=== PATIENT | female | born 1970 | race African-American/Black ===

== ENCOUNTER 2016-10-07 18:47 | Inpatient (IN) | payer OTHER ==
[2016-10-07 19:24] VITALS: BMI 26.3
--- NOTE | 2016-10-07 19:31 | HP ---
Admission ROS [facility] - [facility] Chief Complaint: I WANT TO GO TO REHAB COMPLETED ACI DETOX TODAY Allergies/Adverse Reactions: Allergies Allergy/AdvReac Type Severity Reaction Status Date / Time No Known Allergies Allergy Verified 10/07/16 19:17 History of Present Illness: 46 YEARS OLD FEMALE WITH LONG HISTORY OF HEROIN COCAINE NICOTINE DEPENDENCE HAS ASTHMA HYPERTENSION ECZEMA AND SCHIZOPHRENIA IS ADMITTED TO REHAB Exam Limitations: No Limitations - Ebola screening Have you traveled outside of the country in the last 21 days: No Have you had contact with anyone from an Ebola affected area: No Have you been sick,other than usual withdrawal symptoms: No Do you have a fever: No - Review of Systems Constitutional: Loss of Appetite, Unintentional Wgt. Loss EENT: reports: No Symptoms Reported Respiratory: reports: No Symptoms reported Cardiac: reports: No Symptoms Reported GI: reports: Poor Appetite : reports: No Symptoms Reported Musculoskeletal: reports: No Symptoms Reported Integumentary: reports: Lesions (INNER ELBOWS AND NECK) Neuro: reports: No Symptoms reported Endocrine: reports: No Symptoms Reported Hematology: reports: No Symptoms Reported Psychiatric: reports: Judgement Intact, Orientated x3 Other Systems: Reviewed and Negative Patient History - Patient Medical History Hx Anemia: No Hx Asthma: Yes Hx Chronic Obstructive Pulmonary Disease (COPD): No Hx Cancer: No Hx Cardiac Disorders: No Hx Congestive Heart Failure: No Hx Hypertension: Yes (currently on treatment) Hx Hypercholesterolemia: No Hx Pacemaker: No HX Cerebrovascular Accident: Yes (cerebral aneurysm in 01/01/2008) Hx Seizures: No Hx Dementia: No Hx Diabetes: No Hx Gastrointestinal Disorders: No Hx Liver Disease: No Hx Genitourinary Disorders: No Hx Sexually Transmitted Disorders: No Hx Renal Disease (ESRD): No Hx Thyroid Disease: No Hx Human Immunodeficiency Virus (HIV): No Hx Hepatitis C: Yes (since 2009) Hx Depression: No (currently on treatment) Hx Suicide Attempt: No Hx Bipolar Disorder: No Hx Schizophrenia: Yes - Patient Surgical History Past Surgical History: Yes Hx Neurologic Surgery: Yes (brain aneurysm in 01/01/2008) Hx Cataract Extraction: No Hx Cardiac Surgery: No Hx Lung Surgery: No Hx Breast Surgery: No Hx Breast Biopsy: No Hx Abdominal Surgery: No Hx Appendectomy: No Hx Cholecystectomy: No Hx Genitourinary Surgery: No Hx Section: Yes (x4) Hx Orthopedic Surgery: No Anesthesia Reaction: No - PPD History Previous Implant?: Yes Documented Results: Negative w/o proof Implanted On Prior [facility] Admission?: Yes Date: 10/17/12 PPD to be Administered?: Yes - Reproductive History Patient is a Female of Child Bearing Age (11 -55 yrs old): Yes Last Menstrual Period: 09/30/16 Patient : No - Smoking Cessation Smoking history: Current every day smoker Have you smoked in the past 12 months: Yes Aproximately how many cigarettes per day: 20 Cigars Per Day: 0 Hx Chewing Tobacco Use: No Initiated information on smoking cessation: Yes 'Breaking Loose' booklet given: 10/07/16 - Substance & Tx. History Hx Alcohol Use: No Hx Substance Use: Yes Substance Use Type: Alcohol Hx Substance Use Treatment: Yes - Substances Abused Alcohol Route: Oral Frequency: Daily Amount used: P[place] Age of first use: 23 Date of Last Use: 09/28/16 Heroin Route: Inhalation Frequency: Daily Amount used: 20 BAGS Age of first use: 24 Date of Last Use: 09/28/16 Family Disease History - Family Disease History Family Disease History: Other: Father ( CYST BURST), Mother ( HIV) Admission Physical Exam S - Vital Signs Vital Signs: Vital Signs - 24 hr 10/07/16 19:21 Temperature 97.6 F Pulse Rate 77 Respiratory 18 Rate Blood Pressure 128/73 - Physical General Appearance: Yes: No Apparent Distress, Appropriately Dressed, Thin HEENTM: Yes: Hearing grossly Normal, Normal ENT Inspection, Normocephalic, Normal Voice Respiratory: Yes: Chest Non-Tender, Lungs Clear, Normal Breath Sounds, No Respiratory Distress, No Accessory Muscle Use Neck: Yes: Supple, Trachea in good position Breast: Yes: Breasts Symetrical Cardiology: Yes: Regular Rhythm, Regular Rate, S1, S2 Abdominal: Yes: Non Tender, Soft Genitourinary: Yes: Within Normal Limits Back: Yes: Normal Inspection Musculoskeletal: Yes: full range of Motion, Gait Steady Extremities: Yes: Normal Inspection, Normal Range of Motion, Non-Tender Neurological: Yes: Fully Oriented, Alert, Motor Strength 5/5, Normal Response, Depressed Affect Integumentary: Yes: Normal Color, Warm Lymphatic: Yes: Within Normal Limits - Diagnostic (1) Asthma Current Visit: Yes Status: Acute (2) Essential hypertension Current Visit: Yes Status: Acute (3) Hepatitis C carrier Current Visit: Yes Status: Chronic (4) s/p clipping of cerebral aneurysm right Current Visit: Yes Status: Resolved Comment: CLIPPED 2007, FOLLOW UP ONCE A MONTH, LAST VISIT LAST MONTH (5) Alcohol dependence with uncomplicated withdrawal Current Visit: Yes Status: Acute (6) Schizophrenia, chronic condition Current Visit: Yes Status: Suspected Comment: ZOLOFT SEROQUEL (7) Nicotine dependence Current Visit: Yes Status: Acute Qualifiers: Nicotine product type: cigarettes Substance use status: uncomplicated Qualified Code(s): F17.210 - Nicotine dependence, cigarettes, uncomplicated (8) Eczema Current Visit: Yes Status: Acute Qualifiers: Eczema type: flexural Qualified Code(s): L20.82 - Flexural eczema Comment: HYDROCORTISON CREAM 1% (9) Neuropathy Current Visit: Yes Status: Acute Comment: NEURONTIN 400 MG TID Cleared for Admission [facility] - Detox or Rehab [facility] Level of Care: Observation Bed Claeared for Rehab Admission: Yes [facility] Breath Alcohol Content Breath Alcohol Content: 0 Vital Signs - Vital Signs Vital Signs Refused: No Temperature: 97.6 F Temperature Source: Oral Pulse Rate: 77 Respiratory Rate: 18 Blood Pressure: 128/73 BP Location: Left Arm Blood Pressure Position: Sitting - Height Height: 5 ft 7 in - Weight Weight: 168 lb Weight Measurement Method: Standing Scale Body Mass Index (BMI): 26.3 - Bowel Function Bowel Movement: Yes Urine Pregancy Test - Result Urine Test Results: Negative- NO Line Present Urine Drug Screen - Results Drug Screen Negative: No Urine Drug Screen Results: BZO-Benzodiazepines, MTD-Methadone
[2016-10-07] MEDS ORDERED: MAGNESIUM HYDROX 2400MG/30ML ORAL SUSPENSION 30 ML CUP PO PRN (19:41)
[2016-10-07] MEDS ORDERED: guaiFENesin/D-METHORPHAN HB 10 ML UNIT-DOSE CUPS PO PRN (19:41)
[2016-10-07] MEDS ORDERED: LOPERAMIDE HCL 2 MG CAPSULE PO PRN (19:41)
[2016-10-07] MEDS ORDERED: ACETAMINOPHEN 325 MG TABLET (FP) PO PRN (19:41)
[2016-10-07] MEDS ORDERED: NICOTINE POLACRILEX 2 MG GUM BC PRN (19:41)
[2016-10-07] MEDS ORDERED: IBUPROFEN 400 MG TABLET (FP) PO PRN (19:41)
[2016-10-07] MEDS ORDERED: MAG HYDROX/AL HYDROX/SIMETH 30 ML UNIT-DOSE CUP PO PRN (19:41)
[2016-10-07] MEDS ORDERED: diphenhydrAMINE HCL 50 MG CAPSULE PO PRN (19:41)
[2016-10-07] MEDS ORDERED: P-EPHED 60MG/TRIPROLIDI 2.5MG TABLET PO PRN (19:41)
[2016-10-07] MEDS ORDERED: MAGNESIUM CITRATE 300 ML BOTTLE PO PRN (19:41)
[2016-10-07] MEDS ORDERED: ALBUTEROL SO4 6.7 GM HFA INHALER IH PRN (19:43)
--- NOTE | 2016-10-07 23:10 | PN ---
[facility] Progress Note Note: Psychiatry Attending application packaging consultant: Called to enter orders for: seroquel 400 mg po hs zoloft 50 mg po daily Case: 46 y/o female with PTSD and Schizophrenia. Admitted to [facility] to address alcohol/heroin dependence. Not available for telephone interview.Asleep.Came from [facility]. [facility] report is read and appreciated. test:negative. Medications cannot be verified.Pharmacy claims:no database. As a caution,feature writer will not order 400 mg of seroquel at this time. Noted report of completion of detox at [facility] on this date.Normal vitals. Plan: Seroquel 200 mg po hs. Dose to be re-adjusted in the morning. zoloft 50 mg po daily. Coverage psychiatrist to follow in AM. Discussed with nurse on duty.
[2016-10-07 23:27] LABS: URINE APPEARANCE CLEAR; URINE BILIRUBIN NEGATIVE (NEGATIVE); URINE BLOOD NEGATIVE (NEGATIVE); URINE COLOR LTYELLOW; URINE GLUCOSE (UA) NEGATIVE (NEGATIVE); URINE KETONE NEGATIVE (NEGATIVE); URINE NITRITE NEGATIVE (NEGATIVE); URINE PROTEIN NEGATIVE (NEGATIVE); URINE UROBILINOGEN 2.0 E.U/dl E.U./dl (0.2-1.0)
[2016-10-07 23:28] LABS: URINE LEUK ESTERASE TRACE (NEGATIVE)
[2016-10-07 23:30] LABS: URINE RBC 1 /hpf (0-3); URINE WBC 3 /hpf (3-5)
[2016-10-07] MEDS: THIAMINE HCL 100 MG TABLET (FP) PO SCH (23:37)
[2016-10-07] MEDS: GABAPENTIN 400 MG CAPSULE (FP) PO SCH (23:37)
[2016-10-07] MEDS: HYDROCORTISONE 1% TOPICAL CREAM 30 GM TUBE TP SCH (23:38)
[2016-10-07] MEDS: hydrOXYzine PAMOATE 50 MG CAPSULE (FP) PO PRN (23:39)
[2016-10-08] MEDS: GABAPENTIN 400 MG CAPSULE (FP) PO SCH ×3 (07:06→21:43)
[2016-10-08] MEDS: hydrOXYzine PAMOATE 50 MG CAPSULE (FP) PO PRN ×2 (08:55→21:42)
[2016-10-08 09:57] LABS: MCH 26.7 pg (25.7-33.7); MCHC 32.7 g/dl (32.0-36.0); MEAN CELL VOLUME 81.6 fl (80-96); MEAN PLT VOLUME 10.7 fl (7.5-11.1); PLATELET COUNT 250 K/MM3 (134-434); RDW 15.6 % (11.6-15.6); WHITE BLOOD COUNT 14.8 K/mm3 (4.0-10.0)
[2016-10-08] MEDS: cloNIDine HCL 0.1 MG TABLET PO SCH (10:08)
[2016-10-08] MEDS: PRENATAL VITAMINS W/ FOLIC ACID TABLET (FP) PO SCH (10:09)
[2016-10-08] MEDS: HYDROCORTISONE 1% TOPICAL CREAM 30 GM TUBE TP SCH ×4 (10:09→21:43)
[2016-10-08] MEDS: NICOTINE 21 MG/24 HOURS TOPICAL PATCH TD SCH (10:09)
[2016-10-08] MEDS: SERTRALINE HCL 50 MG TABLET (FP) PO SCH (10:09)
[2016-10-08 10:25] LABS: INR 0.91 (0.82-1.09)
[2016-10-08 11:00] LABS: ALBUMIN 3.9 g/dl (3.4-5.0); ANION GAP 3 (8-16); CO2 24 mmol/L (21-32); GLUCOSE,RANDOM 72 mg/dL (74-106)
[2016-10-08 11:04] LABS: ALK PHOS 97 U/L (45-117); BILIRUBIN,TOTAL 0.5 mg/dL (0.2-1.0); CREATININE 0.9 mg/dL (0.55-1.02); SGOT/AST 15 U/L (15-37); SGPT/ALT 21 U/L (12-78); TOT PROT 8.4 g/dl (6.4-8.2)
[2016-10-08 13:25] LABS: HIV 1 & 2 AB NEGATIVE; HIV 1 AGp24 NEGATIVE
[2016-10-08] MEDS: THIAMINE HCL 100 MG TABLET (FP) PO SCH (21:42)
[2016-10-08] MEDS: QUEtiapine FUMARATE 200 MG TABLET PO SCH (21:44)
[2016-10-09] MEDS: GABAPENTIN 400 MG CAPSULE (FP) PO SCH ×3 (06:54→21:34)
--- NOTE | 2016-10-09 09:17 | HP ---
[id number] Identifying data: This is the second admission to [address] [place] [address] rehab for this 46 yo single mother of 3 kids grown,resides with boyfriend ,supported by SSD. Medical History: Significant for HTN,BA,Neuropathy,Hep C,Eczema. Psychiatric History: First contact with psychiatrist was 15 years ago after she lost her brother,who was killed.Patient was admitted to [facility].She was dx with Schizophrenia and placed on antipsychotics.Patient reports more then 6 psych admitions.F/U by private psychiatrist at [facility] in the [place].Meds:Seroquel 400 mg po hs,Neurontin 400 mg po tid, Trazodone 100 mg po hs and Zoloft 50 mg po daily. Physical/Sexual Abuse/Trauma History: Patient is not willing to discuss at this time. Vital Signs: Vital Signs - 24 hr 10/08/16 10/08/16 10/09/16 09:52 13:29 00:30 Temperature Pulse Rate 87 Respiratory 16 18 Rate Blood Pressure 121/77 10/09/16 10/09/16 03:30 07:10 Temperature 97.7 F Pulse Rate 66 Respiratory 18 18 Rate Blood Pressure 120/75 Allergies/Adverse Reactions: Allergies Allergy/AdvReac Type Severity Reaction Status Date / Time No Known Allergies Allergy Verified 10/07/16 19:17 Date of last physical exam: 10/07/16 Concur with the findings of this exam: Yes - Substance Abuse/Tx History Hx Alcohol Use: Yes (reports drinking since 23 yo,12 pint of vodka daily) Hx Substance Use: Yes (cocaine sine 22 yo,heroin since 24 yo,20 bags daily, benzo started 9 yo) Substance Use Type: Alcohol, Cocaine, Heroin Hx Substance Use Treatment: Yes (this is her second inpatient treatment) - Admission Criteria Previous failed treatment: Yes Poor recovery environment: Yes Comorbidities: Yes Lacks judgement: Yes Mental Status Exam - Mental Status Exam Alert and Oriented to: Time, Place, Person Cognitive Function: Grossly Intact Patient Appearance: Well Groomed Mood: Anxious Affect: Mood Congruent, Labile Patient Behavior: Cooperative Speech Pattern: Clear Thought Process: Goal Oriented Thought Disorder: Not Present, Paranoid Ideation Hallucinations: Denies Suicidal Ideation: Denies Homicidal Ideation: Denies Insight/Judgement: Fair Sleep: Difficulty falling asleep Appetite: Good Muscle strength/Tone: Normal Gait/Station: Normal Psychiatric Findings - Problem List ([place] 1, 2,3) (1) Alcohol dependence with uncomplicated withdrawal Current Visit: Yes Status: Chronic (2) Asthma Current Visit: Yes Status: Chronic (3) Eczema Current Visit: Yes Status: Chronic Qualifiers: Eczema type: flexural Qualified Code(s): L20.82 - Flexural eczema Comment: HYDROCORTISON CREAM 1% (4) Essential hypertension Current Visit: Yes Status: Chronic (5) Neuropathy Current Visit: Yes Status: Chronic Comment: NEURONTIN 400 MG TID (6) Nicotine dependence Current Visit: Yes Status: Chronic Qualifiers: Nicotine product type: cigarettes Substance use status: uncomplicated Qualified Code(s): F17.210 - Nicotine dependence, cigarettes, uncomplicated (7) Hepatitis C carrier Current Visit: Yes Status: Chronic (8) Schizophrenia, chronic condition Current Visit: Yes Status: Chronic (9) Opioid dependence Current Visit: Yes Status: Chronic (10) PTSD (post-traumatic stress disorder) Current Visit: Yes Status: Chronic - Initial Treatment Plan Initial Treatment Plan: Continue current medications as per plan.Will monitor progress.
[2016-10-09] MEDS: NICOTINE 21 MG/24 HOURS TOPICAL PATCH TD SCH (10:45)
[2016-10-09] MEDS: cloNIDine HCL 0.1 MG TABLET PO SCH (10:45)
[2016-10-09] MEDS: HYDROCORTISONE 1% TOPICAL CREAM 30 GM TUBE TP SCH ×4 (10:46→21:35)
[2016-10-09] MEDS: SERTRALINE HCL 50 MG TABLET (FP) PO SCH (10:46)
[2016-10-09] MEDS: PRENATAL VITAMINS W/ FOLIC ACID TABLET (FP) PO SCH (10:46)
[2016-10-09] MEDS: hydrOXYzine PAMOATE 50 MG CAPSULE (FP) PO PRN ×2 (11:14→19:05)
[2016-10-09] MEDS: QUEtiapine FUMARATE 200 MG TABLET PO SCH (21:34)
[2016-10-09] MEDS: THIAMINE HCL 100 MG TABLET (FP) PO SCH (21:34)
[2016-10-10] MEDS: GABAPENTIN 400 MG CAPSULE (FP) PO SCH ×3 (06:35→21:30)
[2016-10-10] MEDS: PRENATAL VITAMINS W/ FOLIC ACID TABLET (FP) PO SCH (10:22)
[2016-10-10] MEDS: cloNIDine HCL 0.1 MG TABLET PO SCH (10:22)
[2016-10-10] MEDS: SERTRALINE HCL 50 MG TABLET (FP) PO SCH (10:22)
[2016-10-10] MEDS: hydrOXYzine PAMOATE 50 MG CAPSULE (FP) PO PRN ×2 (10:23→21:31)
[2016-10-10] MEDS: NICOTINE 21 MG/24 HOURS TOPICAL PATCH TD SCH (10:25)
[2016-10-10] MEDS: HYDROCORTISONE 1% TOPICAL CREAM 30 GM TUBE TP SCH ×4 (10:25→21:32)
[2016-10-10] MEDS: QUEtiapine FUMARATE 200 MG TABLET PO SCH (21:30)
[2016-10-10] MEDS: THIAMINE HCL 100 MG TABLET (FP) PO SCH (21:30)
[2016-10-11] MEDS: GABAPENTIN 400 MG CAPSULE (FP) PO SCH ×3 (06:35→21:50)
[2016-10-11] MEDS: cloNIDine HCL 0.1 MG TABLET PO SCH (10:06)
[2016-10-11] MEDS: NICOTINE 21 MG/24 HOURS TOPICAL PATCH TD SCH (10:07)
[2016-10-11] MEDS: PRENATAL VITAMINS W/ FOLIC ACID TABLET (FP) PO SCH (10:07)
[2016-10-11] MEDS: HYDROCORTISONE 1% TOPICAL CREAM 30 GM TUBE TP SCH ×4 (10:07→22:00)
[2016-10-11] MEDS: SERTRALINE HCL 50 MG TABLET (FP) PO SCH (10:07)
[2016-10-11] MEDS: QUEtiapine FUMARATE 200 MG TABLET PO SCH (21:49)
[2016-10-11] MEDS: THIAMINE HCL 100 MG TABLET (FP) PO SCH (21:50)
[2016-10-12] MEDS: GABAPENTIN 400 MG CAPSULE (FP) PO SCH ×3 (07:00→21:27)
[2016-10-12] MEDS: cloNIDine HCL 0.1 MG TABLET PO SCH (09:55)
[2016-10-12] MEDS: SERTRALINE HCL 50 MG TABLET (FP) PO SCH (09:55)
[2016-10-12] MEDS: NICOTINE 21 MG/24 HOURS TOPICAL PATCH TD SCH (09:56)
[2016-10-12] MEDS: PRENATAL VITAMINS W/ FOLIC ACID TABLET (FP) PO SCH (09:56)
[2016-10-12] MEDS: HYDROCORTISONE 1% TOPICAL CREAM 30 GM TUBE TP SCH ×4 (09:57→21:27)
[2016-10-12] MEDS: THIAMINE HCL 100 MG TABLET (FP) PO SCH (21:26)
[2016-10-12] MEDS: QUEtiapine FUMARATE 200 MG TABLET PO SCH (21:27)
[2016-10-13] MEDS: GABAPENTIN 400 MG CAPSULE (FP) PO SCH ×3 (06:49→21:35)
[2016-10-13] MEDS: SERTRALINE HCL 50 MG TABLET (FP) PO SCH (10:18)
[2016-10-13] MEDS: PRENATAL VITAMINS W/ FOLIC ACID TABLET (FP) PO SCH (10:18)
[2016-10-13] MEDS: cloNIDine HCL 0.1 MG TABLET PO SCH (10:18)
[2016-10-13] MEDS: HYDROCORTISONE 1% TOPICAL CREAM 30 GM TUBE TP SCH ×4 (10:19→21:36)
[2016-10-13] MEDS: NICOTINE 21 MG/24 HOURS TOPICAL PATCH TD SCH (10:19)
[2016-10-13] MEDS: THIAMINE HCL 100 MG TABLET (FP) PO SCH (21:34)
[2016-10-13] MEDS: QUEtiapine FUMARATE 200 MG TABLET PO SCH (21:35)
[2016-10-13] MEDS: hydrOXYzine PAMOATE 50 MG CAPSULE (FP) PO PRN (21:35)
[2016-10-14] MEDS: GABAPENTIN 400 MG CAPSULE (FP) PO SCH ×3 (06:23→21:56)
[2016-10-14] MEDS: NICOTINE 21 MG/24 HOURS TOPICAL PATCH TD SCH (10:25)
[2016-10-14] MEDS: PRENATAL VITAMINS W/ FOLIC ACID TABLET (FP) PO SCH (10:26)
[2016-10-14] MEDS: SERTRALINE HCL 50 MG TABLET (FP) PO SCH (10:26)
[2016-10-14] MEDS: cloNIDine HCL 0.1 MG TABLET PO SCH (10:27)
[2016-10-14] MEDS: HYDROCORTISONE 1% TOPICAL CREAM 30 GM TUBE TP SCH ×4 (10:27→21:58)
[2016-10-14] MEDS: hydrOXYzine PAMOATE 50 MG CAPSULE (FP) PO PRN ×2 (10:28→21:57)
[2016-10-14] MEDS: THIAMINE HCL 100 MG TABLET (FP) PO SCH (21:56)
[2016-10-14] MEDS: QUEtiapine FUMARATE 200 MG TABLET PO SCH (21:56)
[2016-10-15] MEDS: GABAPENTIN 400 MG CAPSULE (FP) PO SCH ×3 (06:21→21:27)
[2016-10-15] MEDS: cloNIDine HCL 0.1 MG TABLET PO SCH (10:38)
[2016-10-15] MEDS: PRENATAL VITAMINS W/ FOLIC ACID TABLET (FP) PO SCH (10:38)
[2016-10-15] MEDS: HYDROCORTISONE 1% TOPICAL CREAM 30 GM TUBE TP SCH ×4 (10:38→21:29)
[2016-10-15] MEDS: NICOTINE 21 MG/24 HOURS TOPICAL PATCH TD SCH (10:38)
[2016-10-15] MEDS: SERTRALINE HCL 50 MG TABLET (FP) PO SCH (10:38)
--- NOTE | 2016-10-15 10:59 | PN ---
Psychiatric Progress Note Vital Signs: Vital Signs Period Temp Pulse Resp BP Sys/Fulton Pulse Ox Last 24 Hr 98.1 F 78 16-18 115/69 Date of Session: 10/15/16 Chief Complaint:: "insomnia" HPI: Patient addressing alcohol, opioid, nicotine dependence comorbid Schizophrenia, PTSD. ROS: HTN , CEREBRAL ANEURYSM ,ASTHMA AND HEP C Current Medications: Active Medications Generic Name Dose Route Start Last Admin Trade Name Freq PRN Reason Stop Dose Admin Acetaminophen 650 mg 10/07/16 19:41 Tylenol - PO Q4H PRN PAIN Al Hydroxide/Mg Hydroxide 30 ml 10/07/16 19:41 10/08/16 04:29 Mylanta Oral Suspension - PO 30 ml Q6H PRN Administration DYSPEPSIA Albuterol Sulfate 2 puff 10/07/16 19:43 10/08/16 13:30 Ventolin Hfa Inhaler - IH 2 inhaler Q4H PRN Administration SHORT OF BREATH/WHEEZING Clonidine 0.3 mg 10/08/16 10:00 10/15/16 10:38 Catapres - PO 0.3 mg DAILY LIZBETH Administration Diphenhydramine HCl 50 mg 10/07/16 19:41 Benadryl - PO HSMR1 PRN INSOMNIA Eucalyptus/Menthol/Phenol/Sorbitol 1 each 10/07/16 19:41 Cepastat Lozenge - MM Q4H PRN SORE THROAT Gabapentin 400 mg 10/07/16 22:00 10/15/16 06:21 Neurontin - PO 400 mg TID LIZBETH Administration Guaifenesin 10 ml 10/07/16 19:41 Robitussin Dm - PO Q6H PRN COUGH Hydrocortisone 1 applic 10/07/16 22:00 10/15/16 10:38 Hytone 1% Cream - TP Not Given QID LIZBETH Hydroxyzine Pamoate 50 mg 10/07/16 19:41 10/14/16 21:57 Vistaril - PO 50 mg Q4H PRN Administration AGITATION Ibuprofen 800 mg 10/09/16 14:25 Motrin - PO Q6H PRN SEVERE PAIN Loperamide HCl 4 mg 10/07/16 19:41 Imodium - PO Q6H PRN DIARRHEA Magnesium Citrate 300 ml 10/07/16 19:41 Citroma - PO Q48H PRN CONSTIPATION Magnesium Hydroxide 30 ml 10/07/16 19:41 Milk Of Magnesia - PO DAILY PRN CONSTIPATION Nicotine 21 mg 10/08/16 10:00 10/15/16 10:38 Nicoderm Patch - TD Not Given DAILY LIZBETH Nicotine Polacrilex 2 mg 10/07/16 19:41 Nicorette Gum - BC Q2H PRN NICOTINE REPLACEMENT RX Multivit/Folic Acid/Iron 1 tab 10/08/16 10:00 10/15/16 10:38 Vitamins (Sjr) - PO 1 tab DAILY LIZBETH Administration Pseudoephedrine/Triprolidine 1 combo 10/07/16 19:41 Actifed - PO TID PRN NASAL CONGESTION Quetiapine Fumarate 200 mg 10/08/16 22:00 10/14/16 21:56 Seroquel - PO 200 mg HS LIZBETH Administration Quetiapine Fumarate 25 mg 10/15/16 11:00 Seroquel - PO DAILY LIZBETH Sertraline HCl 50 mg 10/08/16 10:00 10/15/16 10:38 Zoloft - PO 50 mg DAILY LIZBETH Administration Thiamine HCl 100 mg 10/07/16 22:00 10/14/16 21:56 Vitamin B1 - PO 100 mg HS LIZBETH Administration Trazodone HCl 50 mg 10/15/16 22:00 Desyrel - PO HS LIZBETH Medication(s) Change(s): add Seroquel 25 mg po am and Seroquel 25 mg po hs. Current Side Effect: No Lab tests ordered: No Lab tests reviewed: Yes Provider note:: Patient reports has been feeling very anxious, irritable and unable to sleep, states she [place] nights, she admits having nightmares as well. Reviewed chart and medications, dicsussed indications and properies each of her current medications, recommendede to add Trazodone and Seroquel 25 mg po am, patient agreed with the plan, psychoeducations andemotional support provided, will continue to monitor progress. Total face to face time:: 30 Mental Status Exam - Mental Status Exam Alert and Oriented to: Time, Place, Person Cognitive Function: Grossly Intact Patient Appearance: Well Groomed Mood: Sad, Anxious Affect: Mood Congruent Patient Behavior: Appropriate, Cooperative (rocking back and forth) Speech Pattern: Clear Voice Loudness: Normal Thought Disorder: Not Present Hallucinations: Denies Suicidal Ideation: Denies Homicidal Ideation: Denies Insight/Judgement: Fair Sleep: Poorly, Difficulty falling asleep Appetite: Fair Muscle strength/Tone: Normal Gait/Station: Normal Psychiatric Treatment Plan - Problem List (1) Alcohol dependence with uncomplicated withdrawal Current Visit: Yes (2) Nicotine dependence Current Visit: Yes Qualifiers: Nicotine product type: cigarettes Substance use status: uncomplicated Qualified Code(s): F17.210 - Nicotine dependence, cigarettes, uncomplicated (3) Schizophrenia, chronic condition Current Visit: Yes (4) PTSD (post-traumatic stress disorder) Current Visit: Yes (5) Opioid dependence Current Visit: Yes
[2016-10-15] MEDS: QUEtiapine FUMARATE 25 MG TABLET (FP) PO SCH (12:14)
--- NOTE | 2016-10-15 14:31 | PN ---
[facility] Progress Note Note: pt. c/o feeling dizzy pt. is alert,coherent & oriented bp 103/68 p 79 r 18 t 97.4f p : increase po fluid change clonidine to .1mg bid
[2016-10-15] MEDS: traZODone HCL 50 MG TABLET (FP) PO SCH (21:27)
[2016-10-15] MEDS: QUEtiapine FUMARATE 200 MG TABLET PO SCH (21:27)
[2016-10-15] MEDS: THIAMINE HCL 100 MG TABLET (FP) PO SCH (21:28)
[2016-10-16] MEDS: GABAPENTIN 400 MG CAPSULE (FP) PO SCH ×3 (06:27→21:37)
[2016-10-16] MEDS: cloNIDine HCL 0.1 MG TABLET PO SCH ×2 (10:13→21:37)
[2016-10-16] MEDS: HYDROCORTISONE 1% TOPICAL CREAM 30 GM TUBE TP SCH ×4 (10:13→21:37)
[2016-10-16] MEDS: SERTRALINE HCL 50 MG TABLET (FP) PO SCH (10:14)
[2016-10-16] MEDS: QUEtiapine FUMARATE 25 MG TABLET (FP) PO SCH (10:14)
[2016-10-16] MEDS: PRENATAL VITAMINS W/ FOLIC ACID TABLET (FP) PO SCH (10:14)
[2016-10-16] MEDS: NICOTINE 21 MG/24 HOURS TOPICAL PATCH TD SCH (10:14)
[2016-10-16] MEDS: traZODone HCL 50 MG TABLET (FP) PO SCH (21:37)
[2016-10-16] MEDS: THIAMINE HCL 100 MG TABLET (FP) PO SCH (21:37)
[2016-10-16] MEDS: QUEtiapine FUMARATE 200 MG TABLET PO SCH (21:37)
[2016-10-17] MEDS: GABAPENTIN 400 MG CAPSULE (FP) PO SCH ×3 (06:32→21:42)
[2016-10-17] MEDS: cloNIDine HCL 0.1 MG TABLET PO SCH ×2 (09:58→21:42)
[2016-10-17] MEDS: NICOTINE 21 MG/24 HOURS TOPICAL PATCH TD SCH (09:59)
[2016-10-17] MEDS: PRENATAL VITAMINS W/ FOLIC ACID TABLET (FP) PO SCH (09:59)
[2016-10-17] MEDS: SERTRALINE HCL 50 MG TABLET (FP) PO SCH (09:59)
[2016-10-17] MEDS: HYDROCORTISONE 1% TOPICAL CREAM 30 GM TUBE TP SCH ×4 (09:59→21:42)
[2016-10-17] MEDS: QUEtiapine FUMARATE 25 MG TABLET (FP) PO SCH (09:59)
[2016-10-17] MEDS: THIAMINE HCL 100 MG TABLET (FP) PO SCH (21:42)
[2016-10-17] MEDS: traZODone HCL 50 MG TABLET (FP) PO SCH (21:42)
[2016-10-17] MEDS: QUEtiapine FUMARATE 200 MG TABLET PO SCH (21:42)
[2016-10-18] MEDS: GABAPENTIN 400 MG CAPSULE (FP) PO SCH ×3 (06:49→21:34)
[2016-10-18] MEDS: SERTRALINE HCL 50 MG TABLET (FP) PO SCH (10:43)
[2016-10-18] MEDS: QUEtiapine FUMARATE 25 MG TABLET (FP) PO SCH (10:43)
[2016-10-18] MEDS: cloNIDine HCL 0.1 MG TABLET PO SCH ×2 (10:43→21:34)
[2016-10-18] MEDS: PRENATAL VITAMINS W/ FOLIC ACID TABLET (FP) PO SCH (10:43)
[2016-10-18] MEDS: HYDROCORTISONE 1% TOPICAL CREAM 30 GM TUBE TP SCH ×4 (10:44→21:36)
[2016-10-18] MEDS: NICOTINE 21 MG/24 HOURS TOPICAL PATCH TD SCH (10:44)
[2016-10-18] MEDS: IBUPROFEN 400 MG TABLET (FP) PO PRN ×2 (13:40→21:34)
[2016-10-18] MEDS: THIAMINE HCL 100 MG TABLET (FP) PO SCH (21:33)
[2016-10-18] MEDS: QUEtiapine FUMARATE 200 MG TABLET PO SCH (21:34)
[2016-10-18] MEDS: traZODone HCL 50 MG TABLET (FP) PO SCH (21:34)
[2016-10-19] MEDS: GABAPENTIN 400 MG CAPSULE (FP) PO SCH ×3 (06:24→21:23)
[2016-10-19] MEDS: IBUPROFEN 400 MG TABLET (FP) PO PRN ×3 (06:25→21:28)
[2016-10-19] MEDS: PRENATAL VITAMINS W/ FOLIC ACID TABLET (FP) PO SCH (09:57)
[2016-10-19] MEDS: cloNIDine HCL 0.1 MG TABLET PO SCH ×2 (09:57→21:23)
[2016-10-19] MEDS: QUEtiapine FUMARATE 25 MG TABLET (FP) PO SCH (09:57)
[2016-10-19] MEDS: HYDROCORTISONE 1% TOPICAL CREAM 30 GM TUBE TP SCH ×4 (09:57→21:25)
[2016-10-19] MEDS: SERTRALINE HCL 50 MG TABLET (FP) PO SCH (09:57)
[2016-10-19] MEDS: NICOTINE 21 MG/24 HOURS TOPICAL PATCH TD SCH (09:57)
[2016-10-19] MEDS ORDERED: LIDOCAINE VISCOUS 2% ORAL/TOP 20 ML UNIT-DOSE CUP MM PRN (19:14)
[2016-10-19] MEDS: LIDOCAINE VISCOUS 2% ORAL/TOP 20 ML UNIT-DOSE CUP MM PRN (20:50)
[2016-10-19] MEDS: QUEtiapine FUMARATE 200 MG TABLET PO SCH (21:24)
[2016-10-19] MEDS: THIAMINE HCL 100 MG TABLET (FP) PO SCH (21:24)
[2016-10-19] MEDS: traZODone HCL 50 MG TABLET (FP) PO SCH (21:24)
[2016-10-20] MEDS: IBUPROFEN 400 MG TABLET (FP) PO PRN ×4 (03:36→22:35)
[2016-10-20] MEDS: LIDOCAINE VISCOUS 2% ORAL/TOP 20 ML UNIT-DOSE CUP MM PRN (04:00)
[2016-10-20] MEDS: GABAPENTIN 400 MG CAPSULE (FP) PO SCH ×3 (06:51→21:28)
[2016-10-20] MEDS: QUEtiapine FUMARATE 25 MG TABLET (FP) PO SCH (10:14)
[2016-10-20] MEDS: PRENATAL VITAMINS W/ FOLIC ACID TABLET (FP) PO SCH (10:14)
[2016-10-20] MEDS: SERTRALINE HCL 50 MG TABLET (FP) PO SCH (10:14)
[2016-10-20] MEDS: cloNIDine HCL 0.1 MG TABLET PO SCH ×2 (10:14→21:27)
[2016-10-20] MEDS: NICOTINE 21 MG/24 HOURS TOPICAL PATCH TD SCH (10:14)
[2016-10-20] MEDS: HYDROCORTISONE 1% TOPICAL CREAM 30 GM TUBE TP SCH ×4 (10:15→21:27)
[2016-10-20] MEDS: THIAMINE HCL 100 MG TABLET (FP) PO SCH (21:28)
[2016-10-20] MEDS: traZODone HCL 50 MG TABLET (FP) PO SCH (21:28)
[2016-10-20] MEDS: QUEtiapine FUMARATE 200 MG TABLET PO SCH (21:28)
[2016-10-21] MEDS: IBUPROFEN 400 MG TABLET (FP) PO PRN ×2 (06:32→17:09)
[2016-10-21] MEDS: GABAPENTIN 400 MG CAPSULE (FP) PO SCH ×3 (06:32→21:31)
[2016-10-21] MEDS: SERTRALINE HCL 50 MG TABLET (FP) PO SCH (10:22)
[2016-10-21] MEDS: QUEtiapine FUMARATE 25 MG TABLET (FP) PO SCH (10:22)
[2016-10-21] MEDS: PRENATAL VITAMINS W/ FOLIC ACID TABLET (FP) PO SCH (10:22)
[2016-10-21] MEDS: cloNIDine HCL 0.1 MG TABLET PO SCH ×2 (10:22→21:31)
[2016-10-21] MEDS: NICOTINE 21 MG/24 HOURS TOPICAL PATCH TD SCH (10:23)
[2016-10-21] MEDS: HYDROCORTISONE 1% TOPICAL CREAM 30 GM TUBE TP SCH ×4 (10:23→21:32)
[2016-10-21] MEDS: THIAMINE HCL 100 MG TABLET (FP) PO SCH (21:31)
[2016-10-21] MEDS: QUEtiapine FUMARATE 200 MG TABLET PO SCH (21:31)
[2016-10-21] MEDS: traZODone HCL 50 MG TABLET (FP) PO SCH (21:31)
[2016-10-22] MEDS: GABAPENTIN 400 MG CAPSULE (FP) PO SCH ×3 (06:49→21:34)
[2016-10-22] MEDS: MENTHOL/PHENOL 1 EACH UD MM PRN ×2 (06:49→10:53)
[2016-10-22] MEDS: PRENATAL VITAMINS W/ FOLIC ACID TABLET (FP) PO SCH (10:51)
[2016-10-22] MEDS: SERTRALINE HCL 50 MG TABLET (FP) PO SCH (10:51)
[2016-10-22] MEDS: QUEtiapine FUMARATE 25 MG TABLET (FP) PO SCH (10:51)
[2016-10-22] MEDS: HYDROCORTISONE 1% TOPICAL CREAM 30 GM TUBE TP SCH ×4 (10:52→21:34)
[2016-10-22] MEDS: cloNIDine HCL 0.1 MG TABLET PO SCH ×2 (10:52→21:35)
[2016-10-22] MEDS: NICOTINE 21 MG/24 HOURS TOPICAL PATCH TD SCH (10:52)
--- NOTE | 2016-10-22 15:12 | PN ---
[facility] Progress Note Note: C/O TOOTHACHE,HAS SWOLLEN GUM AROUND INVOLVED TOOTH. Vital Signs - 8 hr 10/22/16 10/22/16 07:14 09:26 Temperature 98.0 F 97.2 F L Pulse Rate 76 85 Respiratory 18 18 Rate Blood Pressure 115/73 132/80 Laboratory Last Values WBC 14.8 K/mm3 (4.0-10.0) H D 10/08/16 07:00 RBC 4.49 M/mm3 (3.60-5.2) 10/08/16 07:00 Hgb 12.0 GM/dL (10.7-15.3) 10/08/16 07:00 Hct 36.6 % (32.4-45.2) 10/08/16 07:00 MCV 81.6 fl (80-96) 10/08/16 07:00 MCHC 32.7 g/dl (32.0-36.0) 10/08/16 07:00 RDW 15.6 % (11.6-15.6) 10/08/16 07:00 Plt Count 250 K/MM3 (134-434) D 10/08/16 07:00 MPV 10.7 fl (7.5-11.1) 10/08/16 07:00 INR 0.91 (0.82-1.09) 10/08/16 07:00 Sodium 134 mmol/L (136-145) L 10/08/16 07:00 Potassium 4.2 mmol/L (3.5-5.1) 10/08/16 07:00 Chloride 107 mmol/L (98-107) 10/08/16 07:00 Carbon Dioxide 24 mmol/L (21-32) 10/08/16 07:00 Anion Gap 3 (8-16) L 10/08/16 07:00 BUN 19 mg/dL (7-18) H D 10/08/16 07:00 Creatinine 0.9 mg/dL (0.55-1.02) D 10/08/16 07:00 Creat Clearance w eGFR > 60 (>60) 10/08/16 07:00 Random Glucose 72 mg/dL (74-106) L 10/08/16 07:00 Calcium 9.0 mg/dL (8.5-10.1) 10/08/16 07:00 Total Bilirubin 0.5 mg/dL (0.2-1.0) 10/08/16 07:00 AST 15 U/L (15-37) D 10/08/16 07:00 ALT 21 U/L (12-78) 10/08/16 07:00 Alkaline Phosphatase 97 U/L (45-117) D 10/08/16 07:00 Total Protein 8.4 g/dl (6.4-8.2) H 10/08/16 07:00 Albumin 3.9 g/dl (3.4-5.0) 10/08/16 07:00 Urine Color Ltyellow 10/07/16 23:15 Urine Appearance Clear 10/07/16 23:15 Urine pH 6.0 (5.0-8.0) 10/07/16 23:15 Ur Specific [place] 1.020 (1.001-1.035) 10/07/16 23:15 Urine Protein Negative (NEGATIVE) 10/07/16 23:15 Urine Glucose (UA) Negative (NEGATIVE) 10/07/16 23:15 Urine Ketones Negative (NEGATIVE) 10/07/16 23:15 Urine Blood Negative (NEGATIVE) 10/07/16 23:15 Urine Nitrite Negative (NEGATIVE) 10/07/16 23:15 Urine Bilirubin Negative (NEGATIVE) 10/07/16 23:15 Urine Urobilinogen 2.0 e.u/dl E.U./dl (0.2-1.0) H 10/07/16 23:15 Ur Leukocyte Esterase Trace (NEGATIVE) H D 10/07/16 23:15 Urine RBC 1 /hpf (0-3) 10/07/16 23:15 Urine WBC 3 /hpf (3-5) 10/07/16 23:15 Ur Epithelial Cells Rare /hpf (FEW) 10/07/16 23:15 RPR Titer Nonreactive (NONREACTIVE) 10/08/16 07:00 HIV 1&2 Antibody Screen Negative 10/08/16 11:10 HIV P24 Antigen Negative 10/08/16 11:10 DX. : DENTAL ABSCESS P : AMOXICILLIN 750 BID
[2016-10-22] MEDS: THIAMINE HCL 100 MG TABLET (FP) PO SCH (21:33)
[2016-10-22] MEDS: traZODone HCL 50 MG TABLET (FP) PO SCH (21:34)
[2016-10-22] MEDS: QUEtiapine FUMARATE 200 MG TABLET PO SCH (21:34)
[2016-10-22] MEDS: AMOXICILLIN 250 MG CAPSULE PO SCH (21:35)
[2016-10-23] MEDS: GABAPENTIN 400 MG CAPSULE (FP) PO SCH ×3 (06:53→21:21)
[2016-10-23] MEDS: MENTHOL/PHENOL 1 EACH UD MM PRN ×2 (06:54→13:39)
[2016-10-23] MEDS: cloNIDine HCL 0.1 MG TABLET PO SCH ×2 (10:26→21:20)
[2016-10-23] MEDS: PRENATAL VITAMINS W/ FOLIC ACID TABLET (FP) PO SCH (10:26)
[2016-10-23] MEDS: AMOXICILLIN 250 MG CAPSULE PO SCH ×2 (10:26→21:20)
[2016-10-23] MEDS: QUEtiapine FUMARATE 25 MG TABLET (FP) PO SCH (10:27)
[2016-10-23] MEDS: SERTRALINE HCL 50 MG TABLET (FP) PO SCH (10:27)
[2016-10-23] MEDS: NICOTINE 21 MG/24 HOURS TOPICAL PATCH TD SCH (10:28)
[2016-10-23] MEDS: HYDROCORTISONE 1% TOPICAL CREAM 30 GM TUBE TP SCH ×4 (10:28→21:21)
--- NOTE | 2016-10-23 13:38 | PN ---
Psychiatric Progress Note Vital Signs: Vital Signs Period Temp Pulse Resp BP Sys/Fulton Pulse Ox Last 24 Hr 97.6 F 67-81 18-18 112-125/71-80 Date of Session: 10/23/16 Chief Complaint:: Progress update. HPI: Patient addressed Opioid dependnece comorbid with Schizophrenia.,PTSD ROS: Significant for HTN,Eczema,Hep C. Current Medications: Active Medications Generic Name Dose Route Start Last Admin Trade Name Freq PRN Reason Stop Dose Admin Acetaminophen 650 mg 10/07/16 19:41 10/20/16 08:48 Tylenol - PO 650 mg Q4H PRN Administration PAIN Al Hydroxide/Mg Hydroxide 30 ml 10/07/16 19:41 10/08/16 04:29 Mylanta Oral Suspension - PO 30 ml Q6H PRN Administration DYSPEPSIA Albuterol Sulfate 2 puff 10/07/16 19:43 10/08/16 13:30 Ventolin Hfa Inhaler - IH 2 inhaler Q4H PRN Administration SHORT OF BREATH/WHEEZING Amoxicillin 750 mg 10/22/16 22:00 10/23/16 10:26 Amoxicillin - PO 10/29/16 21:59 750 mg BID LIZBETH Administration Clonidine 0.1 mg 10/16/16 10:00 10/23/16 10:26 Catapres - PO 0.1 mg BID LIZBETH Administration Diphenhydramine HCl 50 mg 10/07/16 19:41 Benadryl - PO HSMR1 PRN INSOMNIA Eucalyptus/Menthol/Phenol/Sorbitol 1 each 10/07/16 19:41 10/23/16 06:54 Cepastat Lozenge - MM 1 each Q4H PRN Administration SORE THROAT Gabapentin 400 mg 10/07/16 22:00 10/23/16 06:53 Neurontin - PO 400 mg TID LIZBETH Administration Guaifenesin 10 ml 10/07/16 19:41 Robitussin Dm - PO Q6H PRN COUGH Hydrocortisone 1 applic 10/07/16 22:00 10/23/16 10:28 Hytone 1% Cream - TP Not Given QID LIZBETH Hydroxyzine Pamoate 50 mg 10/07/16 19:41 10/14/16 21:57 Vistaril - PO 50 mg Q4H PRN Administration AGITATION Ibuprofen 800 mg 10/09/16 14:25 10/21/16 17:09 Motrin - PO 800 mg Q6H PRN Administration SEVERE PAIN Lidocaine HCl 20 ml 10/19/16 19:17 10/20/16 04:00 Xylocaine 2% Viscous Oral - MM 20 ml Q4HPO PRN Administration ORAL PAIN/MOUTH SORES Loperamide HCl 4 mg 10/07/16 19:41 Imodium - PO Q6H PRN DIARRHEA Magnesium Citrate 300 ml 10/07/16 19:41 Citroma - PO Q48H PRN CONSTIPATION Magnesium Hydroxide 30 ml 10/07/16 19:41 Milk Of Magnesia - PO DAILY PRN CONSTIPATION Naltrexone HCl 50 mg 10/23/16 13:45 Revia - PO DAILY LIZBETH Nicotine 21 mg 10/08/16 10:00 10/23/16 10:28 Nicoderm Patch - TD Not Given DAILY LIZBETH Nicotine Polacrilex 2 mg 10/07/16 19:41 Nicorette Gum - BC Q2H PRN NICOTINE REPLACEMENT RX Multivit/Folic Acid/Iron 1 tab 10/08/16 10:00 10/23/16 10:26 Vitamins (Sjr) - PO 1 tab DAILY LIZBETH Administration Pseudoephedrine/Triprolidine 1 combo 10/07/16 19:41 Actifed - PO TID PRN NASAL CONGESTION Quetiapine Fumarate 200 mg 10/08/16 22:00 10/22/16 21:34 Seroquel - PO 200 mg HS LIZBETH Administration Quetiapine Fumarate 25 mg 10/15/16 11:00 10/23/16 10:27 Seroquel - PO 25 mg DAILY LIZBETH Administration Sertraline HCl 50 mg 10/08/16 10:00 10/23/16 10:27 Zoloft - PO 50 mg DAILY LIZBETH Administration Thiamine HCl 100 mg 10/07/16 22:00 10/22/16 21:33 Vitamin B1 - PO 100 mg HS LIZBETH Administration Trazodone HCl 50 mg 10/15/16 22:00 10/22/16 21:34 Desyrel - PO 50 mg HS LIZBETH Administration Current Side Effect: No Lab tests ordered: No Lab tests reviewed: Yes Provider note:: Patient was evaluated in my office today .She reports still having craving for alcohol,heroin.Properties of Naltrexone has been discussed with the patient including side effects,benfits and dose adjustment.Patient is willing to start Naltrexone 50 mg po daily. Psychotherapy provided (supportive, psychoeducation). Total face to face time:: 35 Mental Status Exam - Mental Status Exam Alert and Oriented to: Time, Place, Person Cognitive Function: Grossly Intact Patient Appearance: Well Groomed Affect: Labile Patient Behavior: Cooperative Speech Pattern: Clear Voice Loudness: Normal Thought Process: Goal Oriented Thought Disorder: Not Present Hallucinations: Denies Suicidal Ideation: Denies Homicidal Ideation: Denies Insight/Judgement: Fair Sleep: Difficulty falling asleep Appetite: Good Muscle strength/Tone: Normal Gait/Station: Normal Psychiatric Treatment Plan - Problem List (1) Alcohol dependence with uncomplicated withdrawal Current Visit: Yes (2) Asthma Current Visit: Yes (3) Eczema Current Visit: Yes Qualifiers: Eczema type: flexural Qualified Code(s): L20.82 - Flexural eczema Comment: HYDROCORTISON CREAM 1% (4) Essential hypertension Current Visit: Yes (5) Neuropathy Current Visit: Yes Comment: NEURONTIN 400 MG TID (6) Nicotine dependence Current Visit: Yes Qualifiers: Nicotine product type: cigarettes Substance use status: uncomplicated Qualified Code(s): F17.210 - Nicotine dependence, cigarettes, uncomplicated (7) Hepatitis C carrier Current Visit: Yes (8) Schizophrenia, chronic condition Current Visit: Yes (9) Opioid dependence Current Visit: Yes (10) PTSD (post-traumatic stress disorder) Current Visit: Yes
[2016-10-23] MEDS: NALTREXONE HCL 50 MG TABLET PO SCH (15:09)
[2016-10-23] MEDS: QUEtiapine FUMARATE 200 MG TABLET PO SCH (21:20)
[2016-10-23] MEDS: THIAMINE HCL 100 MG TABLET (FP) PO SCH (21:21)
[2016-10-23] MEDS: traZODone HCL 50 MG TABLET (FP) PO SCH (21:21)
[2016-10-24] MEDS: GABAPENTIN 400 MG CAPSULE (FP) PO SCH ×3 (06:35→22:40)
[2016-10-24] MEDS: AMOXICILLIN 250 MG CAPSULE PO SCH ×2 (10:50→23:50)
[2016-10-24] MEDS: HYDROCORTISONE 1% TOPICAL CREAM 30 GM TUBE TP SCH ×4 (10:50→22:40)
[2016-10-24] MEDS: cloNIDine HCL 0.1 MG TABLET PO SCH ×2 (10:50→22:41)
[2016-10-24] MEDS: NICOTINE 21 MG/24 HOURS TOPICAL PATCH TD SCH (10:51)
[2016-10-24] MEDS: NALTREXONE HCL 50 MG TABLET PO SCH (10:51)
[2016-10-24] MEDS: PRENATAL VITAMINS W/ FOLIC ACID TABLET (FP) PO SCH (10:51)
[2016-10-24] MEDS: QUEtiapine FUMARATE 25 MG TABLET (FP) PO SCH (10:51)
[2016-10-24] MEDS: SERTRALINE HCL 50 MG TABLET (FP) PO SCH (10:52)
[2016-10-24] MEDS: MENTHOL/PHENOL 1 EACH UD MM PRN (10:53)
[2016-10-24] MEDS: traZODone HCL 50 MG TABLET (FP) PO SCH (22:40)
[2016-10-24] MEDS: QUEtiapine FUMARATE 200 MG TABLET PO SCH (22:40)
[2016-10-24] MEDS: THIAMINE HCL 100 MG TABLET (FP) PO SCH (22:40)
[2016-10-25] MEDS: GABAPENTIN 400 MG CAPSULE (FP) PO SCH ×3 (06:19→21:43)
[2016-10-25] MEDS: cloNIDine HCL 0.1 MG TABLET PO SCH ×2 (10:35→21:44)
[2016-10-25] MEDS: NALTREXONE HCL 50 MG TABLET PO SCH (10:35)
[2016-10-25] MEDS: AMOXICILLIN 250 MG CAPSULE PO SCH ×2 (10:35→21:43)
[2016-10-25] MEDS: HYDROCORTISONE 1% TOPICAL CREAM 30 GM TUBE TP SCH ×3 (10:36→21:44)
[2016-10-25] MEDS: QUEtiapine FUMARATE 25 MG TABLET (FP) PO SCH (10:36)
[2016-10-25] MEDS: SERTRALINE HCL 50 MG TABLET (FP) PO SCH (10:36)
[2016-10-25] MEDS: PRENATAL VITAMINS W/ FOLIC ACID TABLET (FP) PO SCH (10:36)
[2016-10-25] MEDS: NICOTINE 21 MG/24 HOURS TOPICAL PATCH TD SCH (10:37)
[2016-10-25] MEDS: QUEtiapine FUMARATE 200 MG TABLET PO SCH (21:43)
[2016-10-25] MEDS: THIAMINE HCL 100 MG TABLET (FP) PO SCH (21:43)
[2016-10-25] MEDS: traZODone HCL 50 MG TABLET (FP) PO SCH (21:43)
[2016-10-26] MEDS: GABAPENTIN 400 MG CAPSULE (FP) PO SCH ×3 (06:59→21:47)
[2016-10-26] MEDS: NALTREXONE HCL 50 MG TABLET PO SCH (10:30)
[2016-10-26] MEDS: cloNIDine HCL 0.1 MG TABLET PO SCH ×2 (10:30→21:47)
[2016-10-26] MEDS: SERTRALINE HCL 50 MG TABLET (FP) PO SCH (10:30)
[2016-10-26] MEDS: QUEtiapine FUMARATE 25 MG TABLET (FP) PO SCH (10:30)
[2016-10-26] MEDS: PRENATAL VITAMINS W/ FOLIC ACID TABLET (FP) PO SCH (10:30)
[2016-10-26] MEDS: AMOXICILLIN 250 MG CAPSULE PO SCH ×2 (10:32→21:48)
[2016-10-26] MEDS: NICOTINE 21 MG/24 HOURS TOPICAL PATCH TD SCH (10:32)
[2016-10-26] MEDS: HYDROCORTISONE 1% TOPICAL CREAM 30 GM TUBE TP SCH ×4 (10:34→21:48)
[2016-10-26] MEDS: QUEtiapine FUMARATE 200 MG TABLET PO SCH (21:47)
[2016-10-26] MEDS: traZODone HCL 50 MG TABLET (FP) PO SCH (21:47)
[2016-10-26] MEDS: THIAMINE HCL 100 MG TABLET (FP) PO SCH (21:47)
[2016-10-27] MEDS: GABAPENTIN 400 MG CAPSULE (FP) PO SCH ×3 (06:23→21:36)
[2016-10-27] MEDS: QUEtiapine FUMARATE 25 MG TABLET (FP) PO SCH (10:27)
[2016-10-27] MEDS: AMOXICILLIN 250 MG CAPSULE PO SCH ×2 (10:27→21:39)
[2016-10-27] MEDS: SERTRALINE HCL 50 MG TABLET (FP) PO SCH (10:27)
[2016-10-27] MEDS: cloNIDine HCL 0.1 MG TABLET PO SCH ×2 (10:27→21:37)
[2016-10-27] MEDS: NALTREXONE HCL 50 MG TABLET PO SCH (10:28)
[2016-10-27] MEDS: HYDROCORTISONE 1% TOPICAL CREAM 30 GM TUBE TP SCH ×4 (10:28→21:38)
[2016-10-27] MEDS: PRENATAL VITAMINS W/ FOLIC ACID TABLET (FP) PO SCH (10:28)
[2016-10-27] MEDS: NICOTINE 21 MG/24 HOURS TOPICAL PATCH TD SCH (10:29)
[2016-10-27] MEDS: QUEtiapine FUMARATE 200 MG TABLET PO SCH (21:37)
[2016-10-27] MEDS: THIAMINE HCL 100 MG TABLET (FP) PO SCH (21:37)
[2016-10-27] MEDS: traZODone HCL 50 MG TABLET (FP) PO SCH (21:37)
[2016-10-28] MEDS: GABAPENTIN 400 MG CAPSULE (FP) PO SCH (06:24)
[2016-10-28 06:50] VITALS: BP 112/71; PULSE 73; TEMP 97.8
--- NOTE | 2016-10-28 09:03 | PN ---
[id number] 18-18 [id number] Date of Session: 10/28/16 Chief Complaint:: discharge visit HPI: Patient addressed Alcohol and opioid depenedencer comorbid with Schizophrenia,PTSD. ROS: Significant for HTN,Eczema,Neuropathy,BA,Hep C. Current Medications: Active Medications Generic Name Dose Route Start Last Admin Trade Name Freq PRN Reason Stop Dose Admin Acetaminophen 650 mg 10/07/16 19:41 10/20/16 08:48 Tylenol - PO 650 mg Q4H PRN Administration PAIN Al Hydroxide/Mg Hydroxide 30 ml 10/07/16 19:41 10/08/16 04:29 Mylanta Oral Suspension - PO 30 ml Q6H PRN Administration DYSPEPSIA Albuterol Sulfate 2 puff 10/07/16 19:43 10/08/16 13:30 Ventolin Hfa Inhaler - IH 2 inhaler Q4H PRN Administration SHORT OF BREATH/WHEEZING Amoxicillin 750 mg 10/22/16 22:00 10/27/16 21:39 Amoxicillin - PO 10/29/16 21:59 750 mg BID LIZBETH Administration Clonidine 0.1 mg 10/16/16 10:00 10/27/16 21:37 Catapres - PO 0.1 mg BID LIZBETH Administration Diphenhydramine HCl 50 mg 10/07/16 19:41 Benadryl - PO HSMR1 PRN INSOMNIA Eucalyptus/Menthol/Phenol/Sorbitol 1 each 10/07/16 19:41 10/24/16 10:53 Cepastat Lozenge - MM 1 each Q4H PRN Administration SORE THROAT Gabapentin 400 mg 10/07/16 22:00 10/28/16 06:24 Neurontin - PO 400 mg TID LIZBETH Administration Guaifenesin 10 ml 10/07/16 19:41 Robitussin Dm - PO Q6H PRN COUGH Hydrocortisone 1 applic 10/07/16 22:00 10/27/16 21:38 Hytone 1% Cream - TP Not Given QID LIZBETH Hydroxyzine Pamoate 50 mg 10/07/16 19:41 10/14/16 21:57 Vistaril - PO 50 mg Q4H PRN Administration AGITATION Ibuprofen 800 mg 10/09/16 14:25 10/21/16 17:09 Motrin - PO 800 mg Q6H PRN Administration SEVERE PAIN Lidocaine HCl 20 ml 10/19/16 19:17 10/20/16 04:00 Xylocaine 2% Viscous Oral - MM 20 ml Q4HPO PRN Administration ORAL PAIN/MOUTH SORES Loperamide HCl 4 mg 10/07/16 19:41 Imodium - PO Q6H PRN DIARRHEA Magnesium Citrate 300 ml 10/07/16 19:41 Citroma - PO Q48H PRN CONSTIPATION Magnesium Hydroxide 30 ml 10/07/16 19:41 Milk Of Magnesia - PO DAILY PRN CONSTIPATION Naltrexone HCl 50 mg 10/23/16 13:45 10/27/16 10:28 Revia - PO 50 mg DAILY LIZBETH Administration Nicotine 21 mg 10/08/16 10:00 10/27/16 10:29 Nicoderm Patch - TD Not Given DAILY LIZBETH Nicotine Polacrilex 2 mg 10/07/16 19:41 Nicorette Gum - BC Q2H PRN NICOTINE REPLACEMENT RX Multivit/Folic Acid/Iron 1 tab 10/08/16 10:00 10/27/16 10:28 Vitamins (Sjr) - PO 1 tab DAILY LIZBETH Administration Pseudoephedrine/Triprolidine 1 combo 10/07/16 19:41 Actifed - PO TID PRN NASAL CONGESTION Quetiapine Fumarate 200 mg 10/08/16 22:00 10/27/16 21:37 Seroquel - PO 200 mg HS LIZBETH Administration Quetiapine Fumarate 25 mg 10/15/16 11:00 10/27/16 10:27 Seroquel - PO 25 mg DAILY LIZBETH Administration Sertraline HCl 50 mg 10/08/16 10:00 10/27/16 10:27 Zoloft - PO 50 mg DAILY LIZBETH Administration Thiamine HCl 100 mg 10/07/16 22:00 10/27/16 21:37 Vitamin B1 - PO 100 mg HS LIZBETH Administration Trazodone HCl 50 mg 10/15/16 22:00 10/27/16 21:37 Desyrel - PO 50 mg HS LIZBETH Administration Current Side Effect: No Lab tests ordered: No Lab tests reviewed: Yes Provider note:: Patient completed this program today.She has met her treatment goals and will continue to address her issues on outpatient basis at [facility].She will continue current medications as per plan .Scripts for 30 days provided. Therapy provided focusing on coping skills, support utilization to maintain recovery. Patient is stable for discharge today. Total face to face time:: 30 Mental Status Exam - Mental Status Exam Alert and Oriented to: Time, Place, Person Cognitive Function: Grossly Intact Patient Appearance: Well Groomed Mood: Euthymic Affect: Mood Congruent Patient Behavior: Cooperative Speech Pattern: Clear Voice Loudness: Normal Thought Process: Goal Oriented Thought Disorder: Being Controlled Hallucinations: Denies Suicidal Ideation: Denies Homicidal Ideation: Denies Insight/Judgement: Fair Sleep: Fair Appetite: Good Gait/Station: Normal Psychiatric Treatment Plan - Problem List (3) Eczema Qualifiers: Eczema type: flexural Qualified Code(s): L20.82 - Flexural eczema Comment: HYDROCORTISON CREAM 1% (5) Neuropathy Comment: NEURONTIN 400 MG TID (6) Nicotine dependence Qualifiers: Nicotine product type: cigarettes Substance use status: uncomplicated Qualified Code(s): F17.210 - Nicotine dependence, cigarettes, uncomplicated
[2016-10-28] MEDS: PRENATAL VITAMINS W/ FOLIC ACID TABLET (FP) PO SCH (09:04)
[2016-10-28] MEDS: HYDROCORTISONE 1% TOPICAL CREAM 30 GM TUBE TP SCH (09:04)
[2016-10-28] MEDS: AMOXICILLIN 250 MG CAPSULE PO SCH (09:04)
[2016-10-28] MEDS: NALTREXONE HCL 50 MG TABLET PO SCH (09:05)
[2016-10-28] MEDS: QUEtiapine FUMARATE 25 MG TABLET (FP) PO SCH (09:05)
[2016-10-28] MEDS: cloNIDine HCL 0.1 MG TABLET PO SCH (09:05)
[2016-10-28] MEDS: NICOTINE 21 MG/24 HOURS TOPICAL PATCH TD SCH (09:05)
[2016-10-28] MEDS: SERTRALINE HCL 50 MG TABLET (FP) PO SCH (09:05)
== END 2016-10-28 09:29 | disposition home or self-care (01) | DRG 772 ==
LOC: YASAS 18:47 → Y3E 20:15
PROVIDERS: ADMIT Psychiatry & Neurology Psychiatry; ATTEND Psychiatry & Neurology Psychiatry
PROC: HZ42ZZZ Group Counseling for Substance Abuse Treatment, Cognitive-Behavioral (ICD-10-PCS; principal; 2016-10-07)
DX: F11.20 Opioid dependence, uncomplicated (principal); F10.20 Alcohol dependence, uncomplicated; F17.210 Nicotine dependence, cigarettes, uncomplicated; F43.10 Post-traumatic stress disorder, unspecified; F20.9 Schizophrenia, unspecified; J45.909 Unspecified asthma, uncomplicated; I10 Essential (primary) hypertension; L20.82 Flexural eczema; G62.9 Polyneuropathy, unspecified; B18.2 Chronic viral hepatitis C; R42 Dizziness and giddiness; Z86.79 Personal history of other diseases of the circulatory system; K04.7 Periapical abscess without sinus
CPT/HCPCS: 36415; 80053; 81003; 81015; 85027; 85610; 86593; 87389; 93005; 93010